=== PATIENT | female | born 1980 | race Asian ===

== ENCOUNTER 2018-08-15 15:27 | Outpatient (CLI) | payer OTHER ==
[2018-08-15] MEDS ORDERED: MULT-717 PO (15:53)
[2018-08-15] MEDS ORDERED: ASCO10004 PO (15:53)
[2018-08-15] MEDS ORDERED: CALC1CAP8 PO (15:53)
[2018-08-15] MEDS ORDERED: NORE-122 PO (15:53)
[2018-08-15] MEDS ORDERED: FLAX1CAP PO (15:53)
== END 2018-08-15 23:59 | disposition home or self-care (01) ==
LOC: STAR 15:27
PROVIDERS: ATTEND Surgery
DX: Z02.9 Encounter for administrative examinations, unspecified (principal)

== ENCOUNTER 2018-08-22 06:05 | Day surgery (SDC) | payer OTHER ==
[~2018-08-22] VITALS: Ht 162.6 cm; Wt 60.0 kg
[~2018-08-22 06:05] MED LIST: ASCO10004 PO; CALC1CAP8 PO; FLAX1CAP PO; MULT-717 PO; NORE-122 PO
[2018-08-22] MEDS ORDERED: LACTATED RINGERS 1,000 ML IV SCH (06:48)
[2018-08-22 06:49] VITALS: BP 101/69
[2018-08-22] MEDS ORDERED: LIDOCAINE-MPF 1%, 2ML INFIL ONE (07:00)
[2018-08-22] MEDS ORDERED: BUPIVACAINE/PF-EPI 0.5% 1:200K ONE (07:04)
[2018-08-22] MEDS ORDERED: SCOPOLAMINE PATCH, 1.5MG PATCH.TD72 TD ONE ×2 (07:09→07:30)
[2018-08-22] MEDS ORDERED: MIDAZOLAM 1 MG/ML, 2ML ONE (07:17)
[2018-08-22] MEDS ORDERED: FENTANYL PF 250 MCG/5ML ONE (07:17)
[2018-08-22 07:18] LABS: HCG UR SG 1.014 (1.003-1.030)
[2018-08-22] MEDS ORDERED: CEFAZOLIN 1,000 MG ONE (07:51)
[2018-08-22] MEDS ORDERED: SUCCINYLCHOLINE 20 MG/ML, 10ML ONE (07:51)
[2018-08-22] MEDS ORDERED: PROPOFOL 10 MG/ML, 20ML ONE (07:51)
[2018-08-22] MEDS ORDERED: ROCURONIUM 10MG/ML,5ML ONE (07:51)
[2018-08-22] MEDS ORDERED: ONDANSETRON 2MG/ML, 2ML ONE (07:51)
[2018-08-22] MEDS ORDERED: DEXAMETHASONE 4 MG/ML, 1ML ONE (07:51)
[2018-08-22] MEDS ORDERED: NEOSTIGMINE 1 MG/ML, 10ML ONE (07:51)
[2018-08-22] MEDS ORDERED: GLYCOPYRROLATE 0.2MG/1ML, 5ML ONE (07:51)
[2018-08-22] MEDS ORDERED: LORazepam 2 MG/ML, 1ML IVPush PRN (08:00)
[2018-08-22] MEDS ORDERED: ONDANSETRON ODT 8 MG PO PRN (08:00)
[2018-08-22] MEDS ORDERED: ONDANSETRON 2MG/ML, 2ML IV PRN (08:00)
[2018-08-22] MEDS ORDERED: OXYcodone 5 MG/5 ML ORAL.SOL UDC PO PRN (08:00)
[2018-08-22] MEDS ORDERED: MEPERIDINE/PF 25MG/0.5ML IVPush PRN (08:00)
[2018-08-22] MEDS ORDERED: PROMETHAZINE 25 MG/ML, 1ML IV PRN (08:00)
[2018-08-22] MEDS ORDERED: FENTANYL PF 100 MCG/2ML IV PRN (08:00)
[2018-08-22] MEDS ORDERED: ACETAMINOPHEN 325 MG TABLET PO PRN (08:00)
[2018-08-22] MEDS ORDERED: HYDROmorphone 2 MG/ML, 1ML IVPush PRN (08:00)
[2018-08-22] MEDS ORDERED: OXYcodone 5 MG/5 ML ORAL.SOL UDC ONE (09:42)
[2018-08-22] MEDS ORDERED: ACETAMINOPHEN 650 MG/20.3 ML UDC ONE (09:42)
[2018-08-22] MEDS ORDERED: DIPHENHYDRAMINE 50 MG/ML, 1ML ONE (10:17)
[2018-08-22] MEDS ORDERED: HYDROcodone/APAP 5/325 TABLET PO PRN (10:30)
[2018-08-22] MEDS ORDERED: DIPHENHYDRAMINE 50 MG/ML, 1ML IVPush PRN (10:30)
== END 2018-08-22 12:00 | disposition home or self-care (01) ==
LOC: OUT 06:05
PROVIDERS: ATTEND Surgery
DX: E04.2 Nontoxic multinodular goiter (principal)
CPT/HCPCS: 60220; 81025; 88305; 88307; 88331; C1760; J0330; J0690; J1100; J1200; J2250; J2405; J2704; J2710; J3010; J3490; J7120